=== PATIENT | male | born 1995 | race Caucasian/White ===

== ENCOUNTER 2022-08-21 07:16 | Day surgery (SDC) | payer BC ==
[2022-08-17 14:19] VITALS: BMI 34.9
[2022-08-21] MEDS ORDERED: Bupivacaine PF 0.5% 30 ML VIAL ONE (09:00)
[2022-08-21] MEDS ORDERED: Bacitracin Zinc Ointment 30 gm TUBE ONE (09:00)
[2022-08-21] MEDS ORDERED: Neomycin-Polymyxin 1 ML AMP ONE (09:00)
[2022-08-21] MEDS ORDERED: CEFAZOLIN 2 GM VIAL ONE (09:18)
[2022-08-21] MEDS ORDERED: Sodium Chloride 0.9% 100 ML ONE (09:19)
[2022-08-21] MEDS ORDERED: fentaNYL PF 100 MCG/2 ML SYRINGE ONE (09:35)
[2022-08-21] MEDS ORDERED: Ondansetron PF 4 MG/2 ML Vial ONE (09:47)
[2022-08-21] MEDS ORDERED: Ketorolac Tromethamine 30 MG/ML VIAL ONE ×2 (09:47→10:57)
[2022-08-21] MEDS ORDERED: Dexamethasone 20 MG/5 ML VIAL ONE (09:47)
[2022-08-21] MEDS ORDERED: PROPOFOL 200 MG/20 ML VIAL ONE (09:47)
[2022-08-21] MEDS ORDERED: FENTANYL 50 MCG/ML 1 ML VIAL ONE (11:13)
== END 2022-08-21 12:20 | disposition home or self-care (01) ==
LOC: SDC 07:16
PROVIDERS: ATTEND Orthopaedic Surgery Hand Surgery
PROC: 0RBP0ZZ Excision of Left Wrist Joint, Open Approach (ICD-10-PCS; principal; 2022-08-21)
DX: M67.432 Ganglion, left wrist (principal); Z79.899 Other long term (current) drug therapy; Z91.013 Allergy to seafood
CPT/HCPCS: 88304; J1100; J1885; J2405; J2704; J3010; J3490; S0020